=== PATIENT | female | born 1990 | race Caucasian/White ===

== ENCOUNTER 2018-10-10 14:03 | Emergency (ER) | payer OTHER ==
[~2018-10-10] VITALS: Ht 170.2 cm; Wt 79.5 kg
[2018-10-10] MEDS ORDERED: PLEASE ENTER HEIGHT AND WEIGHT MC SCH (14:30)
[2018-10-10] MEDS ORDERED: KETOROLAC 30 MG/1 ML IM ONE (14:30)
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
[2018-10-10] MEDS ORDERED: KETOROLAC 60 MG/2 ML ONE (15:00)
[2018-10-10 15:08] LABS: BASOPHILS # (AUTO) 0.04 x10^3/uL (0-0.1); BASOPHILS % (AUTO) 0 % (0-1); EOSINOPHILS # (AUTO) 0.23 x10^3/uL (0-0.4); EOSINOPHILS % (AUTO) 2 % (1-7); LYMPHOCYTES # (AUTO) 3.56 x10^3/uL (1-3.4); LYMPHOCYTES % (AUTO) 34 % (22-44); MD NO; MEAN CORPUSCULAR HEMOGLOBIN 29.9 pg (27.0-34.8); MEAN CORPUSCULAR HGB CONC 32.9 g/dL (32.4-35.8); MEAN CORPUSCULAR VOLUME 90.8 fL (80-100); MEAN PLATELET VOLUME 8.6 fL (7.4-10.4); MONOCYTES # (AUTO) 0.53 x10^3/uL (0.2-0.8); MONOCYTES % (AUTO) 5 % (2-9); NEUTROPHILS # (AUTO) 6.09 x10^3/uL (1.8-6.8); NEUTROPHILS % (AUTO) 58 % (42-75); PLATELET COUNT 354 x10^3/uL (130-400); RED BLOOD COUNT 5.87 x10^6/uL (3.82-5.3); RED CELL DISTRIBUTION WIDTH 13.9 % (9.6-15.2)
[2018-10-10 15:15] LABS: ANION GAP 10 mmol/L (5-15); CHLORIDE 107 mmol/L (98-107); CREATININE 0.83 mg/dL (0.55-1.02)
--- NOTE | 2018-10-10 15:50 | NUR ---
PT CURRENTLY RESTING ON GURNEY. NAD NOTED. SKIN PWD. RESP EVEN AND UNLABORED. PT AWARE WE ARE WAITING FOR LAB RESULTS. PT ON CONT BP AND O2 MONITORS. CALL LIGHT WITHIN REACH. WILL CONT TO MONITOR PT.
[2018-10-10] MEDS ORDERED: ACETAMINOPHEN 500 MG TABLET ONE (16:22)
--- NOTE | 2018-10-10 16:28 | NUR ---
PT UP TO RESTROOM. STEADY UPON AMBULATION. NAD NOTED. SKIN PWD. RESP EVEN AND UNLABORED. PT CONT TO C/O 10/01 LBP THAT "FEELS LIKE MY NORMAL BACK PAIN, JUST WORSE". PT MEDICATED ORDERED. PT AO X 4. NO ORAL TRAUMA NOTED. NO INCONTINENCE NOTED. PT REMOVED FROM C-COLLAR WITH OKAY BY JULI TOUSSAINT. PT ON CONT BP AND O2 MONITORS. CALL LIGHT WITHIN REACH. WILL CONT TO MONITOR PT.
[2018-10-10 16:30] LABS: CULTURE INDICATED? YES; MICROSCOPIC INDICATED
[2018-10-10] MEDS ORDERED: ACETAMINOPHEN 500 MG TABLET PO ONE (16:30)
[2018-10-10] MEDS ORDERED: LEVE500T53 PO (17:39)
[2018-10-10 17:40] VITALS: BP 102/77
== END 2018-10-10 17:41 | disposition home or self-care (01) ==
LOC: ED 14:26
DX: S39.012A Strain of muscle, fascia and tendon of lower back, initial encounter (principal); S29.012A Strain of muscle and tendon of back wall of thorax, initial encounter; G40.419 Other generalized epilepsy and epileptic syndromes, intractable, without status epilepticus; F17.200 Nicotine dependence, unspecified, uncomplicated; W06.XXXA Fall from bed, initial encounter; Y93.89 Activity, other specified; Y92.89 Other specified places as the place of occurrence of the external cause; Y99.8 Other external cause status
CPT/HCPCS: 36415; 70450; 72125; 72131; 80048; 81001; 84703; 85025; 87086; 96372; 99284; J1885